=== PATIENT | female | born 1975 | race Two or more races ===

== ENCOUNTER 2017-04-22 16:46 | Emergency (ER) | payer MEDICARE, MEDICAID ==
--- NOTE | 2017-04-22 18:37 | RADIOLOGY REPORT (SQ) ---
EXAM DESCRIPTION: SHOULDER RIGHT 2 OR MORE VIEWS COMPLETED DATE/TIME: 04/22/2017 6:28 pm REASON FOR STUDY: right shoulder pain COMPARISON: None. NUMBER OF VIEWS: Three views. TECHNIQUE: Internal rotation, external rotation, and Y view images acquired of the right shoulder. LIMITATIONS: None. FINDINGS: MINERALIZATION: Normal. BONES: No acute fracture or dislocation. No worrisome bone lesions. JOINTS: No dislocation. VISUALIZED LUNGS AND RIBS: No pneumothorax. No rib fracture. SOFT TISSUES: No radiopaque foreign body. OTHER: No other significant finding. IMPRESSION: NEGATIVE STUDY OF THE RIGHT SHOULDER. NO RADIOGRAPHIC EVIDENCE OF ACUTE INJURY. TECHNICAL DOCUMENTATION: JOB ID: [id number] [employer]- All Rights Reserved
--- NOTE | 2017-04-22 19:41 | ER Document Report ---
ED Extremity Problem, Upper - General Chief Complaint: Arm Pain Stated Complaint: RIGHT ARM INJURY/PAIN, SWELLING Time Seen by Provider: 04/22/17 17:51 Mode of Arrival: Ambulatory Information source: Patient, Relative Notes: Patient is a 41-year-old female comes to emergency room complaining right shoulder pain. Patient states she was getting ready for work this morning she raise her arm above her head to fix her hair into a bun and she felt a pop and a snap in her right shoulder. Patient states she is been unable to use the shoulder for the that period of time she works she denies any other injuries. TRAVEL OUTSIDE OF THE [place] IN LAST 30 DAYS: No - HPI Patient complains to provider of: Pain, Swelling, Shoulder Onset: This morning Recent injury: Possibly Where: Home Quality of pain: Achy, Throbbing Severity of pain: Moderate Pain Level: 2 Context: Other - Lifting arms above head Arm and Shoulder (Left): 1 - Pain Associated symptoms: None Exacerbated by: Movement Relieved by: Rest, Positioning Similar symptoms previously: No Recently seen / treated by doctor: No - Related Data Allergies/Adverse Reactions: No Known Allergies Allergy (Unverified 04/22/17 16:51) Past Medical History - Social History Smoking Status: Current Every Day Smoker Cigarette use (# per day): Yes - Quarter pack cigarettes a day Frequency of alcohol use: None Drug Abuse: None Lives with: Family Family History: Reviewed & Not Pertinent Patient has suicidal ideation: No Patient has homicidal ideation: No Pulmonary Medical History: Reports: None EENT Medical History: Reports: None Neurological Medical History: Reports: None Endocrine Medical History: Reports: None Renal/ Medical History: Reports: None. Denies: Hx Peritoneal Dialysis Malignancy Medical History: Reports: None GI Medical History: Reports: None Skin Medical History: Reports None Psychiatric Medical History: Reports: None Traumatic Medical History: Reports: None Infectious Medical History: Reports: None Surgical Hx: Negative Past Surgical History: Reports: None - Immunizations Immunizations up to date: No Hx Diphtheria, Pertussis, Tetanus Vaccination: No Review of Systems - Review of Systems Constitutional: No symptoms reported EENT: No symptoms reported Cardiovascular: No symptoms reported Respiratory: No symptoms reported Gastrointestinal: No symptoms reported Genitourinary: No symptoms reported Female Genitourinary: No symptoms reported Musculoskeletal: Muscle pain, Muscle stiffness Skin: No symptoms reported Hematologic/Lymphatic: No symptoms reported Neurological/Psychological: No symptoms reported -: Yes All other systems reviewed and negative Physical Exam - Vital signs Vitals: Temp Pulse Resp BP Pulse Ox 98.6 F 88 18 128/84 H 99 04/22/17 16:52 04/22/17 16:52 04/22/17 16:52 04/22/17 16:52 04/22/17 16:52 Interpretation: Hypertensive - General General appearance: Alert - HEENT Head: Normocephalic, Atraumatic - Respiratory Respiratory status: No respiratory distress Chest status: Nontender Breath sounds: Normal - Cardiovascular Rhythm: Regular Heart sounds: Normal auscultation Murmur: No - Extremities General upper extremity: Tender General lower extremity: Normal inspection Shoulder: Tender, Limited ROM, Other - Examination patient's right shoulder show some mild swelling there is moderate tenderness to palpation along the lateral edge of the shoulder. There is no discomfort or tenderness anteriorly to palpation patient also has limited range of motion secondary to discomfort. Vascular exam shows her to have good pulses distally in the nail beds of the fingers are all less than 2 seconds brachial pulses good. Patient has full range of motion of the lower portion of the arm at the elbow and good animal herder strength is noted. - Neurological Neuro grossly intact: Yes Cognition: Normal Orientation: AAOx4 [place] Coma Scale Eye Opening: Spontaneous [place] Coma Scale Verbal: Oriented [place] Coma Scale Motor: Obeys Commands [place] Coma Scale Total: 15 Speech: Normal - Skin Skin Temperature: Warm Skin Moisture: Dry Skin Color: Normal, [place] Course - Vital Signs Vital signs: Temp Pulse Resp BP Pulse Ox 98.6 F 88 18 128/84 H 99 04/22/17 16:52 04/22/17 16:52 04/22/17 16:52 04/22/17 16:52 04/22/17 16:52 - Diagnostic Test Radiology reviewed: Reports reviewed - X-rays of right shoulder shows no acute findings. Procedures - Immobilization Right Lateral Shoulder Time completed: 19:48 Pre-Proc Neuro Vasc Exam: Normal Immobilizer type: Sling Performed by: PCT Post-Proc Neuro Vasc Exam: Normal Alignment checked and good: Yes Discharge - Discharge Clinical Impression: Right shoulder strain Qualifiers: Encounter type: initial encounter Qualified Code(s): S46.911A - Strain of unspecified muscle, fascia and tendon at shoulder and upper arm level, right arm , initial encounter Disposition: HOME, SELF-CARE Instructions: Shoulder Injury ([facility]) Additional Instructions: Home and rest. Medications prescribed. Use the sling for the next 3-4 days to rest her shoulder completely. If pain continues after 3 days she will need follow-up with her primary care and get a referral for an MRI. Should you have any concerns or problems or pain increase gets worse return to ER for recheck. Prescriptions: Cyclobenzaprine HCl [Flexeril 10 mg Tablet] 10 mg PO TIDP PRN #21 tablet PRN Reason: Tramadol HCl 50 mg PO TID #20 tablet Forms: Elevated Blood Pressure, Parent Work Note
[2017-04-22 20:11] VITALS: BP 121/83
== END 2017-04-22 20:06 | disposition home or self-care (01) ==
LOC: ER 16:46
DX: S46.911A Strain of unspecified muscle, fascia and tendon at shoulder and upper arm level, right arm, initial encounter (principal); X58.XXXA Exposure to other specified factors, initial encounter; Y92.009 Unspecified place in unspecified non-institutional (private) residence as the place of occurrence of the external cause; F17.210 Nicotine dependence, cigarettes, uncomplicated
CPT/HCPCS: 99283